=== PATIENT | male | born 1980 | race Caucasian/White ===

== ENCOUNTER 2017-10-10 12:50 | Emergency (ER) | payer BC ==
[2017-10-10 13:51] VITALS: BP 137/88
--- NOTE | 2017-10-10 14:12 | UC ---
Respiratory Complaint HPI - HPI Summary HPI Summary: 37 yo with severe URI symptoms about 2 weeks ago runny nose/post nasal drip and cough resolved but right sinus pressure and pain has persisted - History of Current Complaint Chief Complaint: UCRespiratory Stated Complaint: SINUS PAIN/CONGESTION Time Seen by Provider: 10/10/17 14:06 Hx Obtained From: Patient Onset/Duration: Gradual Onset, Lasting Hours, Lasting Weeks Timing: Constant Severity Initially: Moderate Severity Currently: Moderate Pain Intensity: 4 Character: Cough: Nonproductive Associated Signs And Symptoms: Positive: Nasal Congestion, Sinus Discomfort - Allergies/Home Medications Allergies/Adverse Reactions: Allergies Allergy/AdvReac Type Severity Reaction Status Date / Time No Known Allergies Allergy Verified 10/10/17 13:51 PMH/Surg Hx/FS Hx/Imm Hx Previously Healthy: Yes - Family History Known Family History: Positive: Hypertension - Social History Alcohol Use: Occasionally Substance Use Type: None Smoking Status (MU): Never Smoked Tobacco Review of Systems Constitutional: Negative Skin: Negative Eyes: Negative ENT: Dental Pain, Sinus Pain/Tenderness Respiratory: Negative Cardiovascular: Negative Gastrointestinal: Negative Genitourinary: Negative Motor: Negative Neurovascular: Negative Musculoskeletal: Negative Neurological: Negative Psychological: Negative Is Patient Immunocompromised?: No All Other Systems Reviewed And Are Negative: Yes Physical Exam Triage Information Reviewed: Yes Appearance: Well-Appearing, No Pain Distress, Well-Nourished Vital Signs: Initial Vital Signs Temp 98.2 F 10/10/17 13:48 Pulse 69 10/10/17 13:48 Resp 16 10/10/17 13:48 BP 137/88 10/10/17 13:48 Pulse Ox 98 10/10/17 13:48 Eyes: Positive: Conjunctiva Clear ENT: Positive: Hearing grossly normal, Pharyngeal erythema, TMs normal, Sinus tenderness - right max and ethmoid, Uvula midline Neck: Positive: Supple, Nontender, No Lymphadenopathy Respiratory: Positive: Lungs clear, Normal breath sounds, No respiratory distress Cardiovascular: Positive: RRR, No Murmur Musculoskeletal: Positive: ROM Intact, No Edema Neurological: Positive: Alert Psychological Exam: Normal Skin Exam: Normal UC Diagnostic Evaluation - Laboratory O2 Sat by Pulse Oximetry: 98 - normal/not hypoxic Respiratory Course/Dx - Differential Dx/Diagnosis Provider Diagnoses: acute sinusitis Discharge - Discharge Plan Condition: Stable Disposition: HOME Prescriptions: Amoxicillin PO (*) [Amoxicillin 875 MG (*)] 875 mg PO BID #[id number] tab Patient Education Materials: Sinusitis (ED) Referrals: Jer Holman MD [Primary Care Provider] - 1 Week (if not better) Additional Instructions: warm facial compresses saline nasal spray twice daily recheck next week if not better
== END 2017-10-10 14:20 | disposition home or self-care (01) ==
LOC: UCEAST 12:50
DX: J01.90 Acute sinusitis, unspecified (principal); Z72.89 Other problems related to lifestyle
CPT/HCPCS: 99212; G0463